=== PATIENT | female | born 1950 ===

== ENCOUNTER → 2018-02-23 | Outpatient (CLI) | payer OTHER ==
[~2018-02-23] MED LIST: ATACAND HCT 31 UDTA1 PO; PLAVIX75 MG PO; SYNTHROID200 MCG PO; TOPROL XL100 MG PO; TOPROL XL50 MG PO
== END | disposition home or self-care (01) ==
LOC: NUCLEAR 02-22 11:00
DX: I48.2 Chronic atrial fibrillation (principal); I50.32 Chronic diastolic (congestive) heart failure